=== PATIENT | female | born 1965 | race Caucasian/White ===

== ENCOUNTER → 2020-01-16 | Outpatient (CLI) | payer SELFPAY ==
[~2020-01-16] MED LIST: PRAV20TA2 PO; estrogen patch TD
--- NOTE | 2020-01-16 13:45 | RAD ---
EXAM: Right thyroid fine-needle aspiration. HISTORY: Thyroid nodule. TECHNIQUE: The risks of the procedure discussed with the patient in and written and verbal consent was obtained. A timeout was performed. Sonographic imaging of the right thyroid lobe was performed and the nodule of concern was identified. This is mixed cystic and solid and contains echogenic foci likely due to calcification. Multiple passes were obtained with 25-gauge needles through the lesion of concern with sonographic guidance. The aspirate was submitted to the department of pathology for analysis. Manual compression was maintained and a sterile bandage was placed. The patient tolerated the procedure without complication. IMPRESSION: Sonographic guided fine needle aspiration of a mixed cystic and solid lesion within the right thyroid lobe. An addendum to this report will be submitted when pathology results are available. Electronically signed by: Loraine Suarez MD (01/16/2020 1:42 PM) [id number]
--- NOTE | 2020-01-18 16:10 | PATHOLOGY ---
Note [facility] Accession Number: [id number] TESTS RESULT FLAG UNITS REF RANGE LAB Clinician Provided Cytology Information No. of containers..01 Other (Miscellaneous) Source: [A] 01 RT THYROID NODULE DIAGNOSIS: [A] 02 RT THYROID NODULE SUSPICIOUS FOR MALIGNANCY. B[place]DA CATEGORY IV. SUSPICIOUS FOR NEOPLASM. THIS INTERPRETATION INCLUDES EVALUATION OF A CELL BLOCK. PREDOMINANTLY IN THE CELL BLOCK ARE COLLECTIONS OF ATYPIAL CELLS WITH A FOCAL PAPILLARY ARCHITECTURE AND NUCLEAR ATYPIA. THE FINDING ARE SUSPICIOUS FOR MALIGNANCY AND PAPILLARY CARINOMA IS IN THE DIFFERENTIAL DIAGNOSIS. MATERIAL IS BEING SENT FOR MOLECULAR ANALYSIS. CLINICAL AND RADIOGRAPHIC CORRELATION IS REQUIRED. THE CASE IS CO-REVIEWED WITH DR. BROWN LESTER. Pathologist ICD10: 02 R89.6 Signed out by: Estella Laguerre MD, Pathologist NPI- [id number] Performed by: Sheila Denis, Night Auditor ([facility]) Gross description: 30ML, CLEAR COLORLESS, 2FX 2AD 2H /LCS 01/16/2020 1709 Local FLAG LEGEND: L-Low Normal,H-High Normal,LL-Alert Low,HH-Alert High <-Panic Low,>-Panic High,A-Abnormal,AA-Critical Abnormal Performed at: [facility] [address] [facility] [address] [place] [address] Brown Lester MD, [address] [facility] [address] [place] [address] Sebastian Still MD, Specimen Comment: A courtesy copy of this report has been sent to [phone] Specimen Comment: [id number] Specimen Comment: [id number] Specimen Comment: Report sent to DR NEAL / DR MANE Performed at: [address], [place], [place] [id number] MD Brown Lester MD Phone: [phone]
== END | disposition home or self-care (01) ==
LOC: US 12:49
PROVIDERS: ATTEND Family Medicine
DX: E04.1 Nontoxic single thyroid nodule (principal); R89.6 Abnormal cytological findings in specimens from other organs, systems and tissues; Z79.899 Other long term (current) drug therapy; Z72.89 Other problems related to lifestyle
CPT/HCPCS: 10005; 60300; 76942; 88173; 88305

== ENCOUNTER → 2020-03-13 | Outpatient (CLI) | payer OTHER ==
[2020-02-03 15:00] VITALS: BP 120/68
[~2020-03-13] MED LIST changes: +OXYC1TAB15 PO
== END ==
LOC: LAB 16:06
PROVIDERS: ATTEND Surgery
DX: Z01.812 Encounter for preprocedural laboratory examination (principal); Z20.828 Contact with and (suspected) exposure to other viral communicable diseases; E04.1 Nontoxic single thyroid nodule
CPT/HCPCS: U0003

== ENCOUNTER 2020-03-19 06:17 | Observation (INO) | payer OTHER ==
[2020-03-19] VITALS (11 sets, daily range): BP systolic 113–139; BP diastolic 63–85
[~2020-03-19] VITALS: Ht 172.7 cm; Wt 71.5 kg
[~2020-03-19 06:17] MED LIST changes: -OXYC1TAB15 PO
[2020-03-19] MEDS ORDERED: IV RINGERS,LACTATED 1000ML 1,000 ML IV SCH (07:00)
[2020-03-19] MEDS ORDERED: HYDROmorphone 2 MG/ML VIAL IV PRN ×2 (07:00→09:45)
[2020-03-19] MEDS ORDERED: fentaNYL PF VIAL 100 MCG/2 ML VIAL IV PRN ×2 (07:00)
[2020-03-19] MEDS ORDERED: ONDANSETRON PF 4 MG/2 ML VIAL. IV PRN (07:00)
[2020-03-19] MEDS ORDERED: MORPHINE SULFATE 2 MG/ML VIAL. IV PRN ×3 (07:00→13:45)
[2020-03-19] MEDS ORDERED: PROCHLORPERAZINE 10 MG/2 ML VIAL. IV PRN (07:00)
[2020-03-19] MEDS ORDERED: LIDOCAINE 1% PF 2 ML VIAL. ID PRN (07:00)
[2020-03-19] MEDS ORDERED: 0.9 % SODIUM CHLORIDE 20 ML VIAL. IJ ONE (07:05)
[2020-03-19] MEDS ORDERED: PROPOFOL 10 MG/ML (20ML) VIAL. IV ONE (07:05)
[2020-03-19] MEDS ORDERED: LIDOCAINE 2% PF 5 ML VIAL. ONE (07:05)
[2020-03-19] MEDS ORDERED: SUCCINYLCHOLINE 200 MG/10 ML VIAL. ONE (07:06)
[2020-03-19] MEDS ORDERED: REMIFENTANIL 1 MG VIAL. IV ONE (07:06)
[2020-03-19] MEDS ORDERED: fentaNYL PF VIAL 100 MCG/2 ML VIAL ONE (07:06)
[2020-03-19] MEDS ORDERED: MIDAZOLAM HCL/PF 2 MG/2 ML VIAL. ONE (07:18)
[2020-03-19] MEDS ORDERED: SEVOFLURANE > 120 MINUTES. IH ONE (07:43)
[2020-03-19] MEDS ORDERED: GLYCOPYRROLATE 1 MG/5 ML VIAL. ONE (07:50)
[2020-03-19] MEDS ORDERED: ONDANSETRON PF 4 MG/2 ML VIAL. IVP PRN (09:45)
[2020-03-19] MEDS ORDERED: oxyCODONE/APAP 5/325 1 TAB TABLET PO PRN (09:45)
[2020-03-19] MEDS ORDERED: 0.9 % SODIUM CHLORIDE 10 ML DISP.SYRIN. IV PRN (09:45)
[2020-03-19] MEDS ORDERED: NALOXONE 0.4 MG/ML VIAL. IV PRN (09:45)
[2020-03-19] MEDS ORDERED: IV NORMAL SALINE 1000ML BAG 1,000 ML IV SCH (09:45)
--- NOTE | 2020-03-19 09:55 | PDOC4 ---
Operative Note Operative Note Operative Note: Preoperative Diagnosis: Right thyroid nodule Postoperative Diagnosis: Same Procedure: Right thyroid lobectomy with isthmusectomy Surgeon: [employer] Agent: Dr. Manan MILLER, Dorcas GAONA Anesthesia: General EBL: 10 mL Specimen: Right thyroid with isthmus, stitch superior pole to pathology Drains: None Complications: None Indication: The patient is a 54-year-old female who was referred because of a right thyroid nodule measuring 1.3 cm. An FNA biopsy showed suspicious cytology, however genetic testing showed no mutations. Based on these findings we recommend a right thyroid lobectomy with frozen section evaluation. She understands the potential of needing a total thyroidectomy. Other risks of surgery were discussed which include bleeding, infection, recurrent laryngeal nerve injury, hypoparathyroidism, scar tissue, voice changes, anesthetic risk, potential need for additional surgery procedure. She understands and would like to proceed. Description: The patient was taken to the operating room and placed supine on the operating table. General anesthesia was performed. The Nims device was assembled. The anterior neck was prepped with ChloraPrep and draped in a standard surgical manner. A small collar incision was made two fingerbreadths above the sternal notch. Cautery dissection was carried through the platysma. Subplatysmal flaps were developed superiorly and inferiorly. The strap muscle fascia was divided in the midline. We then directed our attention to the right thyroid. The lobe was freed from the surrounding strap muscles. The superior pole was dissected free and the vascular pedicle was ligated with 2-0 Vicryl and divided. In a similar manner the inferior pole was also mobilized. Blood vessels supplying the inferior pole were ligated with 3-0 Vicryl and divided. The harmonic scalpel assisted with this dissection. Near the inferior pole there was a glandular structure consistent with a small parathyroid gland. This was left in situ. We then began mobilizing the remainder of the thyroid in a lateral to medial fashion. The recurrent laryngeal nerve was identified and stimulated appropriately with the NIMS. The nerve was preserved while mob ilizing the lobe. Any remaining tracheal attachments were divided using the harmonic scalpel. The isthmus was included with the specimen attached to the right thyroid lobe. The lobe was fully excised and a stitch used to andie the superior pole. The specimen was sent to pathology and frozen section evaluation was performed. The nodule did not show any clear evidence of malignancy with preliminary frozen section evaluation. We therefore elected to conclude the case. The strap muscle fascia was reapproximated with 3-0 Vicryl. The platysma was closed with 3-0 Vicryl. Skin was then approximated with 4-0 Monocryl. Steri-Strips and a sterile dressing were applied. The patient tolerated the procedure well and was sent to the recovery room in stable condition. At the end of the case all counts were correct. ANKIT JUNE MD Mar 19, 2020 09:55
--- NOTE | 2020-03-19 11:10 | NUR ---
Arrived to unit by bed from PACU. Alert and oriented x's 4. Dressing on neck is d/i. Anxious to go to bathroom. Ambulated with steady gait. Voided 200cc clear yellow urine. Return to bed. Oriented to room and controls. Side rails up x's 2 with call light in reach. Boyfriend at bedside. Cont. monitor.
--- NOTE | 2020-03-19 12:56 | NUR ---
Called Dr Del Cid in regards to the patients pain medication. Patient stated that the Dilaudid I gave her via IV "did nothing for her" and she refused to take Percocet because she said "it just doesn't work". Patient specifically asked for morphine IV. Morphine 1-4mg IV Q3hrs PRN ordered per Dr Del Cid and Dilaudid was discontinued. Will monitor.
[2020-03-19] MEDS ORDERED: MORPHINE SULFATE 4 MG/ML VIAL. IVP PRN ×2 (13:15→13:45)
[2020-03-19] MEDS: oxyCODONE/APAP 5/325 1 TAB TABLET PO PRN ×2 (16:36→20:58)
[2020-03-19] MEDS ORDERED: ATORVASTATIN CALCIUM 10 MG TABLET. PO SCH (21:00)
[2020-03-19] MEDS: IV 1/2 NORMAL SALINE 1,000 ML IV SCH ×2 (22:15→22:56)
[2020-03-20 03:20] VITALS: BP 122/72
[2020-03-20 06:01] VITALS: BP 124/85
[2020-03-20] MEDS ORDERED: OXYC1TAB15 PO (09:51)
--- NOTE | 2020-03-20 10:06 | DISCH ---
DISCHARGE INSTRUCTIONS Condition on Discharge Condition on Discharge: Stable Activity After Discharge Activity Instructions for Disc: Activity as tolerated Bathing Instructions: Shower-keep dressing dry Driving Instructions after Dis: Do not drive Diet after Discharge Diet after Discharge: Regular Wound Incision Care Other wound/incision instructi: remove dressing on 03/22, then can leave uncovered Contacting the after DC Call your doctor for: Concerns you may have Follow-Up Follow up with: Dr Del Cid 1 week, call to schedule [phone] DARIAN ELAINE APRN Mar 20, 2020 10:06
--- NOTE | 2020-03-20 10:12 | PDOC3 ---
Discharge Summary Visit Information Date of Admission: Mar 19, 2020 Date of Discharge: Mar 20, 2020 Admitting Diagnosis: Right thyroid nodule Final Diagnosis Right thyroid nodule Brief Hospital Course Allergies Allergies Coded Allergies Type Severity Reaction Last Updated Verified No Known Drug Allergies 03/19/20 No Vital Signs Vital Signs Date Time Temp Pulse Resp B/P (MAP) Pulse Ox O2 Delivery O2 Flow Rate FiO2 03/20/20 07:44 Room Air 03/20/20 06:01 98.0 66 18 124/85 (98) 96 98.0 03/19/20 11:23 6.0 Brief Hospital Course Ms. Valerio is a 54 old female who underwent Right thyroid lobectomy with isthmusectomy. Postoperatively tolerating diet, minimal pain. Taking liquids adequately. Ready for discharge home. Will have pt FU in office next week Discharge Information Condition at Discharge: Stable Follow Up: Weeks (1) Disposition/Orders: D/C to Home Scheduled Pravastatin Sodium (Pravastatin Sodium) 20 Mg Tablet, 1 TAB PO QHS for HLD, #90 Ref 1 (Reported) Entered as Reported by: MICHELINE IVORY on 02/02/20 1058 Last Taken: Unknown Dose on 03/18/20 Last Action: Converted on 03/19/20 0949 by ANKIT JUNE [estrogen patch] , 0.0375 TD Q3DAYS, (Reported) Entered as Reported by: MICHELINE IVORY on 02/02/20 105 Last Taken: Unknown Dose on 03/15/20 Last Action: HELD on 03/19/20 0949 by ANKIT JUNE Scheduled PRN Oxycodone/Apap 5-325 (Percocet 5-325 Mg Tablet ) 1 Each Tablet, 1 TAB PO PRN Q4HRS PRN for MILD PAIN, 1ST CHOICE, #30 Ref 0 Prescribed by: Michelle Chambers on 03/20/20 0951 Justicifation of Admission Dx: Justifications for Admission: Justification of Admission Dx: Yes Comments: thyroid nodule MICHELLE [employer]ERS [employer] Mar 20, 2020 10:12
--- NOTE | 2020-03-20 11:03 | NUR ---
Patient left around 1050 with her significant other. Discharge education completed by Michelle Chambers and this nurse. Patients dressing was CDI at discharge. IVs were both removed. Script for pain medication sent to the pharmacy per Michelle. No concerns noted at discharge.
--- NOTE | 2020-03-21 11:25 | PATHOLOGY ---
[facility] Accession Number: [id number] . 01 Material submitted: . thyroid gland - RIGHT THYROID ISHTHMUS STITCH AT SUPERIOR FOLD. Modifiers: right . 01 Clinical history: . THYROID NODULE RIGHT THYROIDECTOMY WITH FS . 02 Frozen section diagnosis: . INTRAOPERATIVE CONSULTATION WITH FROZEN SECTION: (Caron Still M.D.) . FSA1. Thyroid lobe and isthmus, right thyroidectomy: - Follicular lesion - definitive diagnosis deferred to permanent sections and evaluation of entire nodule. . The results are reported to Dr. Del Cid in Pathology. . Frozen section performed at [facility], [address] [place] [address]. . . FROZEN SECTION GROSS DESCRIPTION: The specimen is received fresh for intraoperative consultation and is designated "right thyroid, thyroid isthmus stitch at superior pole". This consists of a lobe of reddish-purple thyroid tissue, which weighs 4 grams and measures 4.0 x 1.9 x 1.3 cm. There is a small attached portion of thyroid isthmus measuring 1.0 x 0.7 cm. The capsular surface generally appears intact. The capsular surface is inked. The lobe is serially sectioned from superior to inferior. Sectioning reveals a pale brown nodule within the inferior pole measuring approximately 1.1 cm in greatest dimension. The remainder of the thyroid lobe has a dark purple meaty appearance. No additional nodules are identified. A lifeline representatives portion of the nodule is submitted for frozen section as FSA1. The tissue remaining from frozen section is submitted for permanent sections as A1. The remainder of the thyroid lobe is submitted from superior to inferior as A2-A5. The portion of attached isthmus is submitted for microscopy as A6. (JPM/db; 03/19/2020) ANNEMARIE/TRACY . 02 Diagnosis: Thyroid lobe and isthmus, right thyroidectomy: - Adenomatous nodule, inferior lobe, measuring 1.1 cm in greatest dimension, showing focal sclerosis. - No parathyroid glands identified. . (JPM:mmabelino; 03/20/2020) QLM 03/20/2020 1634 Local . 02 Comment: There is no evidence of malignancy. . (JPM:mml; 03/20/2020) . 02 Electronically signed: . Sebastian Still MD, Pathologist NPI- [id number] . 01 Gross description: . SEE FROZEN SECTION GROSS DESCRIPITON. /LBQ 03/19/2020 1528 Local . 02 Pathologist provided ICD-10: E04.1 . 02 CPT . 362623, [id number] Specimen Comment: A courtesy copy of this report has been sent to [phone] Specimen Comment: Report sent to Performed at: 01 [facility] [address] [facility] [address], [place], [place] [id number] MD Trey Rogers MD Phone: [phone] Performed at: 02 [facility] [address] [place], [place] [id number] MD Sebastian Still MD Phone: [phone]
== END 2020-03-20 11:00 | disposition home or self-care (01) ==
LOC: SURG 06:17 → 4 SOUTHEST 09:45
PROVIDERS: ADMIT Surgery; ATTEND Surgery
DX: E04.1 Nontoxic single thyroid nodule (principal)
CPT/HCPCS: 60220; 88307; 88331; 96374; 96375; G0378; G0379; J0330; J0690; J1170; J2250; J2270; J2704; J3010; J3490